=== PATIENT | female | born 1990 | race Caucasian/White ===

== ENCOUNTER → 2018-04-04 | Outpatient (CLI) | payer OTHER ==
[~2018-04-04] MED LIST: AMOCLA500 PO; AMOCLA875 PO; BUSP5 PO; Bactrim Ds Tab1 EACH PO; CEPH500 PO; CIPR500 PO; HYDACE5 PO; LORA10ER PO; ONDA4ODT MM; OXYACE5T PO; PENVK500 PO; PHENA200 PO; PROM25 PO; PROM25S PR; VENL25 PO; Veetids 500500 MG PO; [UNRECOGNIZED DRUG - REMARK] PO
== END ==
LOC: LAB 16:30 → LAB SHORT 16:30
DX: R30.0 Dysuria (principal)
CPT/HCPCS: 87086